=== PATIENT | female | born 1985 | race Caucasian/White ===

== ENCOUNTER 2021-02-23 08:55 | Emergency (ER) | payer SELFPAY ==
[2021-02-23 09:09] VITALS: BP 110/65; PULSE 95; RESP 16; TEMP 36.9; O2SAT 99
--- NOTE | 2021-02-23 09:26 | ED.DENTAL ---
HPI - Dental/Oral General Chief complaint: Dental/Oral Stated complaint: tooth pain Time Seen by Provider: 02/23/21 09:14 Source: patient and RN notes reviewed Mode of arrival: ambulatory History of Present Illness HPI Narrative: Patient presents today complaining of upper anterior tooth pain since yesterday. Denies injury, trauma, or cavity to the tooth. She currently rates her tooth pain 6/10 and has tried [id number] medication for symptoms prior to arrival without relief of symptoms. She does not currently have a dentist. MD Complaint: tooth pain Related Data Allergies Allergy/AdvReac Type Severity Reaction Status Date / Time No Known Allergies Allergy Verified 02/23/21 09:20 Review of Systems Review of Systems: CONSTITUTIONAL: Denies body aches, fever, chills, or sweats. EYES: Denies visual changes, redness, or discharge. ENT: Denies rhinorrhea, congestion, sore throat, or otalgia.+ Tooth pain CARDIOVASCULAR: Denies chest pain, palpitations, or edema. RESPIRATORY: Denies cough or dyspnea. GASTROINTESTINAL: Denies abdominal pain, nausea, vomiting, or diarrhea. GENITOURINARY: Denies dysuria or hematuria. SKIN: Denies rash, itching, or wounds. MUSCULOSKELETAL: Denies back pain, joint pain, or myalgia. NEUROLOGIC: Denies headache, numbness, tingling, or weakness. PSYCH: Denies depression or anxiety. PMFSH Comments At time of signature, I have reviewed and agree with nursing past medical, surgical, social and family history unless otherwise noted. Please see nursing chart for further information. There is no relevant family history pertinent to the presenting complaint Exam Narrative: GENERAL: Well-appearing, well-nourished, and in no acute distress. HEAD: Normocephalic, atraumatic. EYES: EOMI. No redness or drainage. Conjunctivae normal. ENT: Mucous membranes pink and moist. Tenderness to tooth #8. Anterior upper gumline is erythematous and edematous. No obvious periapical abscess. Swelling of the upper lip. NECK: Normal AROM. Supple. No lymphadenopathy. CHEST: No respiratory distress. EXTREMITIES: Normal range of motion. No edema. SKIN: Warm, dry, no rash. Capillary refill normal. Normal skin turgor. NEURO: No focal deficits. Alert and oriented x3. Gait steady. PSYCH: Normal affect. No signs of depression or anxiety. Course Vital Signs Vital signs: Vital Signs Temperature 98.5 F 02/23/21 09:09 Pulse Rate 95 02/23/21 09:09 Respiratory Rate 16 02/23/21 09:09 Blood Pressure 110/65 02/23/21 09:09 Pulse Oximetry 99 02/23/21 09:09 Temperature 98.5 F 02/23/21 09:09 Pulse Rate 95 02/23/21 09:09 Respiratory Rate 16 02/23/21 09:09 Blood Pressure 110/65 02/23/21 09:09 Pulse Oximetry 99 02/23/21 09:09 Reviewed MDM - Dental/Oral Differential Diagnosis Differential diagnosis: Likely gingival abscess, dental caries, toothache, dental abscess and fracture of tooth Critical Care Time Critical Care Time Critical Care Time: No Discharge Plan Discharge Clinical Impression: Dental abscess Patient Disposition: Home, Self-Care Condition: Stable Instructions: Antibiotic Form, Dental Abscess (ED) Additional Instructions: [place] la amoxicilina seg?n lo prescrito hasta que se acabe. [place] Tylenol o ibuprofeno en casa para el dolor. Haylie un seguimiento con el dentista lo antes posible para carter evaluaci?n y tratamiento adicionales. Please take the amoxicillin as prescribed until gone. Take Tylenol or ibuprofen at home for pain. Follow-up with the dentist as soon as possible for further evaluation and treatment. Patient Language: Maori Prescriptions: New amoxicillin 875 mg tablet 875 mg PO Q12H 10 Days Qty: 20 RF: 0 Follow-up/Referrals: UNKNOWN,DOCTOR [Primary Care Provider] - Time of Disposition: 09:34
== END 2021-02-23 09:40 | disposition home or self-care (01) ==
PROVIDERS: Emergency Provider Nurse Practitioner
DX: K04.7 Periapical abscess without sinus (principal)
CPT/HCPCS: 99203; G0463